=== PATIENT | female | born 1985 | race Caucasian/White ===

== ENCOUNTER 2020-02-17 16:51 | Outpatient (CLI) | payer OTHER | END 2020-02-17 16:52 | disposition home or self-care (01) | LOC: LAB 16:51 | PROVIDERS: ATTEND Physician Assistant Medical | DX: Z34.90 Encounter for supervision of normal pregnancy, unspecified, unspecified trimester (principal) | CPT/HCPCS: 36415; 84702 ==

== ENCOUNTER 2020-03-09 08:00 | Outpatient (CLI) | payer OTHER | END 2020-03-09 23:59 | disposition home or self-care (01) | LOC: LAB.WCP 08:00 | PROVIDERS: ATTEND Physician Assistant Medical | DX: Z34.90 Encounter for supervision of normal pregnancy, unspecified, unspecified trimester (principal) | CPT/HCPCS: 36415; 84702 ==

== ENCOUNTER 2020-03-10 10:00 | Outpatient (CLI) | payer OTHER ==
[2020-03-10 13:16] LABS: MUDS CUTOFF CONCENTRATIONS CUTOFF CONC BELOW:
[2020-03-10 13:37] LABS: BILIRUBIN,URINE NEGATIVE (NEGATIVE); GLUCOSE, URINE (UA) NEGATIVE (NEGATIVE); KETONES,URINE (UA) NEGATIVE (NEGATIVE); LEUKOCYTE ESTERASE, URINE NEGATIVE (NEGATIVE); NITRITE,URINE NEGATIVE (NEGATIVE); OCCULT BLOOD,URINE NEGATIVE (NEGATIVE); PROTEIN,URINE NEGATIVE (NEGATIVE); UROBILINOGEN,URINE 0.2 (NORMAL) E.U./dL (NORMAL)
[2020-03-10 13:39] LABS: CLARITY,URINE CLEAR (CLEAR)
[2020-03-10 13:47] LABS: AMPHETAMINE SCREEN,URINE NEGATIVE (NEGATIVE); BENZODIAZEPINES SCREEN, URINE NEGATIVE (NEGATIVE); COCAINE SCREEN URINE NEGATIVE (NEGATIVE); METHADONE SCREEN, URINE NEGATIVE (NEGATIVE); METHAMPHETAMINES SCREEN, URINE NEGATIVE (NEGATIVE); OPIATE SCREEN, URINE NEGATIVE (NEGATIVE); OXYCODONE SCREEN, URINE NEGATIVE (NEGATIVE); PROPOXYPHENE SCREEN, URINE NEGATIVE (NEGATIVE); TRICYCLIC ANTIDEPRESSANT,URINE NEGATIVE (NEGATIVE)
[2020-03-10 14:01] LABS: BACTERIA,URINE Rare /HPF (None Seen); RBC,URINE 0-5 /HPF (0-5); SQUAMOUS EPITHELIAL CELL,UR RARE Squamous (<= Few)
[2020-03-10 20:52] LABS: TRICHOMONAS VAGINALIS DNA NEGATIVE (NEGATIVE)
== END 2020-03-10 23:59 | disposition home or self-care (01) ==
LOC: LAB.R 10:00
PROVIDERS: ATTEND Advanced Practice Midwife
DX: Z36.89 Encounter for other specified antenatal screening (principal)
CPT/HCPCS: 80306; 81001; 87086; 87491; 87591; 87661

== ENCOUNTER 2020-03-16 08:46 | Outpatient (CLI) | payer OTHER ==
--- NOTE | 2020-03-16 17:44 | Ultrasound Report ---
Reason: POSITIVE TEST Procedure Date: 03/16/2020 Accession Number: [id number] / [id number] Procedure: US - OB First Trimester CPT Code: Final Report FULL RESULT: PROCEDURE: OB First Trimester INDICATIONS: POSITIVE TEST OUTSIDE/PRIOR DATING DATA: Last menstrual period (LMP): 12/14/2019. LMP-based estimated date of delivery (ILEANA): 09/19/2020. First dating scan (date and location): 03/16/2020. Estimated date of delivery (ILEANA) from first dating scan: 09/18/2020. TECHNIQUE: Real-time scanning was performed of the fetus and maternal pelvic organs, with image documentation. COMPARISON: None. FINDINGS: Embryo: There is a single intrauterine demonstrated. The crown-rump length measures up to 7.3 cm corresponding to a calculated gestational age of 13 weeks 3 days. There is heart motion with a rate of 144 bpm. The placenta is anterior in position. Measurement variability in dating: +/- 4 weeks by LMP, +/- 7 days by mean sac diameter (use before 6 weeks gestation if crown-rump length not able to be measured), +/- 5 days by crown-rump length (6-12 weeks gestation). Maternal organs: Ovaries are within normal size limits, measuring 2.0 x 3.3 x 2.9 cm on the right and 2.5 x 3.7 x 1.9 cm on the left. No adnexal masses. The cervix is closed and measures approximately 4.3 cm in length. IMPRESSION: 1. Single living intrauterine with cartilage gestational age of 13 weeks 3 days corresponding to an estimated delivery date of 09/18/2020. Findings are concordant with patient's dates by LMP. Reviewed by: Bryan Jo MD on 03/16/2020 1:06 PM PDT Approved by: Bryan Jo MD on 03/16/2020 1:06 PM PDT Station ID: [id number]
== END 2020-03-16 08:47 | disposition home or self-care (01) ==
LOC: DI 08:46
PROVIDERS: ATTEND Obstetrics & Gynecology
DX: Z34.91 Encounter for supervision of normal pregnancy, unspecified, first trimester (principal)
CPT/HCPCS: 76801

== ENCOUNTER 2020-04-27 14:33 | Outpatient (CLI) | payer OTHER ==
--- NOTE | 2020-04-27 17:47 | Ultrasound Report ---
PROCEDURE: OB Detailed Eval INDICATIONS: SCREENING OUTSIDE/PRIOR DATING DATA: Last menstrual period (LMP): 12/14/2019. LMP-based estimated date of delivery (ILEANA): 09/19/2020. First dating scan (date and location): 03/16/2020. Estimated date of delivery (ILEANA) from first dating scan: 09/18/2020. TECHNIQUE: Real-time scanning was performed of the fetus, with image documentation and biometric measurements. Endovaginal scanning: Not performed COMPARISON: 03/16/2020 FINDINGS: General: A single living intrauterine gestation is present. Presentation: Breech Placenta: Placental position is anterior, without previa. Amniotic fluid index: 14.6 cm, normal for gestational age. heart rate: 149 beats per minute. Maternal cervical canal: 4 cm long; normal length is 2.5 cm or more. biometrics: Biparietal diameter: 4.4 cm, 19 weeks, 2 days Head circumference: 16.5 cm, 19 weeks, 1 day Abdominal circumference: 13.4 cm, 18 weeks, 6 days Femur length: 2.7 cm, 18 weeks, 2 days Estimated gestational age from initial scan: 19 weeks, 3 days Composite gestational age from present scan: 18 weeks 6 days Estimated weight and percentile: 251 g, 18 weeks, 4 days, 11th percentile Measurement variability in biometric dating: +/- 10 days from 12-20 weeks gestation, +/- 2 weeks from 20-30 weeks gestation, +/- 3 weeks at 30 weeks gestation or later. Anatomic survey: Neuro: Ventricles are normal at less than 10 mm. Cisterna magna is normal at 3-11 mm. Cerebellum i s normal in size and morphology. Nuchal skin fold: Normal at less than 6 mm between 14 and 20 weeks gestational age. Face: Nose and lips, facial profile are normal. Spine: No evidence for spina bifida. Heart: 4-chambered heart is present, with normal ventricular outflow tracts. Diaphragm: Diaphragm is intact. Stomach: Left-sided stomach is present. Kidneys: No hydronephrosis. Normal is less than 5 mm in 2nd trimester, less than 7 mm in 3rd trimester. Cord: 3 vessel cord has orthotopic insertion. Bladder: Normal in size. Extremities: All 4 extremities are visualized. IMPRESSION: 1. Single living intrauterine with a composite gestational age of 18 weeks, 6 days, 4 days behind the initially assigned gestational age. 2. Symmetric growth and normal anatomy. Reviewed by: Ellyn River MD on 04/27/2020 5:45 PM PDT Approved by: Ellyn River MD on 04/27/2020 5:45 PM PDT Station ID: [id number]
== END 2020-04-27 14:34 | disposition home or self-care (01) ==
LOC: DI 14:33
PROVIDERS: ATTEND Advanced Practice Midwife
DX: Z36.89 Encounter for other specified antenatal screening (principal)
CPT/HCPCS: 76811

== ENCOUNTER 2020-05-03 09:45 | Outpatient (CLI) | payer OTHER ==
[2020-05-03 10:14] LABS: BASOPHILS % (AUTO) 0.3 %; EOSINOPHILS # (AUTO) 0.2 10^3/uL (0.0-0.7); EOSINOPHILS % (AUTO) 1.8 %; HGB - HEMOGLOBIN 12.4 g/dL (12.0-16.0); LYMPHOCYTES % (AUTO) 10.4 %; MEAN CORPUSCULAR HEMOGLOBIN 29.7 pg (27.0-31.0); MEAN CORPUSCULAR HGB CONC 33.5 g/dL (32.0-36.0); MEAN CORPUSCULAR VOLUME 88.5 fL (81.0-99.0); MEAN PLATELET VOLUME 9.4 fL (7.9-10.8); MONOCYTES # (AUTO) 0.7 10^3/uL (0.0-1.0); MONOCYTES % (AUTO) 7.2 %; NEUTROPHILS # (AUTO) 7.7 10^3/uL (1.5-6.6); NEUTROPHILS % (AUTO) 79.8 %; PLT - PLATELET COUNT 236 10^3/uL (130-450); RED BLOOD COUNT 4.18 10^6/uL (4.20-5.40); RED CELL DISTRIBUTION WIDTH 12.3 % (12.0-15.0); WHITE BLOOD COUNT 9.6 x10^3/uL (4.8-10.8)
[2020-05-04 09:49] LABS: HIV AG/AB 4TH GEN NON-REACTIVE (NON-REACTIVE)
[2020-05-04 12:19] LABS: HEPATITIS C ANTIBODY NON-REACTIVE (NON-REACTIVE)
[2020-05-04 12:20] LABS: HEPATITIS B SURFACE ANTIGEN NON-REACTIVE (NON-REACTIVE)
== END 2020-05-03 09:46 | disposition home or self-care (01) ==
LOC: LAB 09:45
PROVIDERS: ATTEND Advanced Practice Midwife
DX: Z36.89 Encounter for other specified antenatal screening (principal)
CPT/HCPCS: 36415; 81599; 85025; 86592; 86762; 86803; 86850; 86900; 86901; 87340; 87389

== ENCOUNTER 2020-06-19 08:32 | Outpatient (CLI) | payer OTHER ==
--- NOTE | 2020-06-19 11:58 | Ultrasound Report ---
PROCEDURE: OB F/U or Repeat INDICATIONS: POOR GROWTH OUTSIDE/PRIOR DATING DATA: Last menstrual period (LMP): 12/14/2019. LMP-based estimated date of delivery (ILEANA): 09/19/2020. First dating scan (date and location): 03/16/2020. Estimated date of delivery (ILEANA) from first dating scan: 09/18/2020. TECHNIQUE: Real-time scanning was performed of the fetus, with image documentation and biometric measurements. COMPARISON: 04/27/2020, 03/16/2020 FINDINGS: General: A single live intrauterine gestation is present. Presentation: Cephalic Placenta: Placental position is anterior, without previa. Amniotic fluid index: 18.6 cm, 80th percentile for gestational age. heart rate: 138 beats per minute. Maternal cervical canal: 4 cm long; normal length is 2.5 cm or more. biometrics: Biparietal diameter: 6.9 cm he was 27 weeks 5 days Head circumference: 25.2 cm equals 27 weeks 2 days Abdominal circumference: 23.9 cm equals 28 weeks 0 days Femur length: 4.9 cm equals 26 weeks 2 days Estimated gestational age from initial scan: 27 weeks 0 days Composite gestational age from present scan: 27 weeks 1 day Estimated weight and percentile: 1057 g, 51st percentile Measurement variability in biometric dating: +/- 10 days from 12-20 weeks gestation, +/- 2 weeks from 20-30 weeks gestation, +/- 3 weeks at 30 weeks gestation or more. Other: The previously seen appearing calcifications within the liver are no longer seen. IMPRESSION: Normal interval growth compared to the prior ultrasound examination. Reviewed by: Narinder Garcia MD on 06/19/2020 10:57 AM PATRICK Approved by: Narinder Garcia MD on 06/19/2020 10:57 AM PATRICK Station ID: [id number]
== END 2020-06-19 08:33 | disposition home or self-care (01) ==
LOC: DI 08:32
PROVIDERS: ATTEND Midwife
DX: O36.5930 Maternal care for other known or suspected poor fetal growth, third trimester, not applicable or unspecified (principal); Z3A.27 27 weeks gestation of pregnancy
CPT/HCPCS: 76816

== ENCOUNTER 2020-08-09 09:30 | Outpatient (CLI) | payer MEDICAID ==
[2020-08-09 13:32] LABS: BASOPHILS % (AUTO) 0.4 %; EOSINOPHILS # (AUTO) 0.1 10^3/uL (0.0-0.7); HGB - HEMOGLOBIN 12.6 g/dL (12.0-16.0); LYMPHOCYTES % (AUTO) 12.4 %; MEAN CORPUSCULAR HEMOGLOBIN 29.6 pg (27.0-31.0); MEAN CORPUSCULAR HGB CONC 34.1 g/dL (32.0-36.0); MEAN CORPUSCULAR VOLUME 86.6 fL (81.0-99.0); MEAN PLATELET VOLUME 10.9 fL (7.9-10.8); MONOCYTES # (AUTO) 0.6 10^3/uL (0.0-1.0); MONOCYTES % (AUTO) 7.7 %; NEUTROPHILS # (AUTO) 6.5 10^3/uL (1.5-6.6); NEUTROPHILS % (AUTO) 77.9 %; PLT - PLATELET COUNT 233 10^3/uL (130-450); RED BLOOD COUNT 4.26 10^6/uL (4.20-5.40); RED CELL DISTRIBUTION WIDTH 12.1 % (12.0-15.0); WHITE BLOOD COUNT 8.3 x10^3/uL (4.8-10.8)
[2020-08-09 13:47] LABS: CREATININE,URINE 67.9 mg/dL; PROTEIN/CREATININE RATIO,URINE 0.2 (<=0.2)
[2020-08-09 14:03] LABS: ALBUMIN 2.7 g/dL (3.2-5.5); ALBUMIN/GLOBULIN RATIO 1.1 (1.0-2.2); BILIRUBIN,TOTAL 0.2 mg/dL (0.2-1.0); CALCIUM 8.5 mg/dL (8.5-10.3); TOTAL PROTEIN 5.2 g/dL (6.7-8.2); URIC ACID 3.6 mg/dL (2.6-7.2)
[2020-08-09 18:09] LABS: CREATININE 0.5 mg/dL (0.4-1.0)
== END 2020-08-09 23:59 | disposition home or self-care (01) ==
LOC: LAB.WCP 09:30
PROVIDERS: ATTEND Midwife
DX: Z34.03 Encounter for supervision of normal first pregnancy, third trimester (principal)
CPT/HCPCS: 80053; 82570; 84156; 84550; 85025

== ENCOUNTER 2020-08-31 11:36 | Outpatient (CLI) | payer MEDICAID ==
[2020-08-31 12:10] LABS: BASOPHILS % (AUTO) 0.3 %; EOSINOPHILS # (AUTO) 0.1 10^3/uL (0.0-0.7); EOSINOPHILS % (AUTO) 0.9 %; HGB - HEMOGLOBIN 13.3 g/dL (12.0-16.0); LYMPHOCYTES # (AUTO) 0.9 10^3/uL (1.5-3.5); LYMPHOCYTES % (AUTO) 10.7 %; MEAN CORPUSCULAR HEMOGLOBIN 29.4 pg (27.0-31.0); MEAN CORPUSCULAR HGB CONC 33.9 g/dL (32.0-36.0); MEAN CORPUSCULAR VOLUME 86.7 fL (81.0-99.0); MEAN PLATELET VOLUME 10.1 fL (7.9-10.8); MONOCYTES # (AUTO) 0.7 10^3/uL (0.0-1.0); MONOCYTES % (AUTO) 7.8 %; NEUTROPHILS # (AUTO) 6.9 10^3/uL (1.5-6.6); NEUTROPHILS % (AUTO) 79.4 %; PLT - PLATELET COUNT 243 10^3/uL (130-450); RED BLOOD COUNT 4.52 10^6/uL (4.20-5.40); RED CELL DISTRIBUTION WIDTH 12.8 % (12.0-15.0); WHITE BLOOD COUNT 8.7 x10^3/uL (4.8-10.8)
[2020-08-31 12:24] LABS: ALBUMIN/GLOBULIN RATIO 1.1 (1.0-2.2); BILIRUBIN,TOTAL 0.6 mg/dL (0.2-1.0); CALCIUM 9.7 mg/dL (8.5-10.3); CREATININE 0.5 mg/dL (0.4-1.0); TOTAL PROTEIN 5.7 g/dL (6.7-8.2)
[2020-08-31 12:25] LABS: CREATININE,URINE 28.8 mg/dL; PROTEIN/CREATININE RATIO,URINE 0.2 (<=0.2)
--- NOTE | 2020-08-31 16:15 | Ultrasound Report ---
PROCEDURE: OB F/U or Repeat INDICATIONS: HTN, ILEANA 09/19/20 OUTSIDE/PRIOR DATING DATA: Last menstrual period (LMP): 12/14/2019. LMP-based estimated date of delivery (ILEANA): 09/19/2020. First dating scan (date and location): 03/16/2020. Estimated date of delivery (ILEANA) from first dating scan: 09/18/2020. TECHNIQUE: Real-time scanning was performed of the fetus, with image documentation and biometric measurements. COMPARISON: OB ultrasound 06/19/2020, 04/27/2020 FINDINGS: General: A single living intrauterine gestation is present. Presentation: Vertex Placenta: Placental position is anterior, without previa. Amniotic fluid index: 16.2 cm, 67th percentile for gestational age. Largest pocket 7.4 cm heart rate: 163 beats per minute. Maternal cervical canal: Not assessed biometrics: Biparietal diameter: 9.23 cm 37 weeks 3 days Head circumference: 33.6 cm 38 weeks 3 days Abdominal circumference: 35.6 cm 39 weeks 3 days Femur length: 7.2 cm 36 weeks 5 days Estimated gestational age from initial scan: 37 weeks 3 days Composite gestational age from present scan: 38 weeks 0 days Estimated weight and percentile: 3158 g 84th percentile Measurement variability in biometric dating: +/- 10 days from 12-20 weeks gestation, +/- 2 weeks from 20-30 weeks gestation, +/- 3 weeks at 30 weeks gestation or more. Other: Not applicable. IMPRESSION: 1. Single live with ultrasound gestational age today of 30 weeks 0 days compared to 37 week s 3 days from initial ultrasound. Ultrasound ILEANA is unchanged at 09/18/2020. Reviewed by: Sherrie Celeste MD on 08/31/2020 4:14 PM PST Approved by: Sherrie Celeste MD on 08/31/2020 4:14 PM PST Station ID: [id number]
[2020-08-31 18:04] VITALS: BP 134/94
--- NOTE | 2020-09-03 18:10 | PROVIDER PROGRESS NOTE ---
- HPI Chief Complaint: Other Current : Current EDU 09/19/20 Gestation 37 Weeks and 2 Days 1 Para 0 Vital Signs Temperature 98.1 F 08/31/20 11:49 Heart Rate 111 H 08/31/20 11:49 Respiratory Rate 16 08/31/20 11:49 Blood Pressure 133/95 H 08/31/20 11:49 O2 Saturation 100 08/31/20 11:49 Temperature 98.1 F 08/31/20 11:49 Heart Rate 93 08/31/20 13:00 Respiratory Rate 16 08/31/20 11:49 Blood Pressure 134/94 H 08/31/20 13:00 O2 Saturation 100 08/31/20 11:49 - Exam Patient is a 35 yo at 37+ 2 wga who presented from clinic for PIH evaluation. Patient had been planning a home with [facility]. She developed consistently elevated BPs. Presented as a HADLEY given new onsent GHTN. No PIH symptoms. Seen in clinic and had mild range pressures. Sent to triage for NST/HUBER with growth us and PIH labs Labs were wnl HUBER 16 and EFW 87%ile EFM 140 mod diane 15x15 accels no decels TOCO: Intermittent ctx , mild A/P: Cat I tracing Mild range pressures Reassuring PIH labs EFW wnl Confirmed vertex Return for IOL on 09/03/2020 Consents obtain in clinic - Procedures NST Procedure: NST Procedure Start Date 08/31/20 Start Time 11:45 Patient States Movement Yes
== END 2020-08-31 15:32 | disposition home or self-care (01) ==
LOC: WFO 11:36 → FBP 11:38 → WFO 15:32
PROVIDERS: ATTEND Obstetrics & Gynecology
DX: O13.3 Gestational [pregnancy-induced] hypertension without significant proteinuria, third trimester (principal); Z3A.37 37 weeks gestation of pregnancy
CPT/HCPCS: 59025; 80053; 82570; 84156; 84550; 85025

== ENCOUNTER 2020-09-03 07:34 | Inpatient (IN) | payer MEDICAID ==
[2020-09-03] MEDS ORDERED: TRANEXAMIC ACID 1,000 MG in SODIUM CHLORIDE 0.9% 100ML 100 ML IV PRN (07:52)
[2020-09-03] MEDS ORDERED: miSOPROStoL 200 MCG TABLET PR PRN (07:52)
[2020-09-03] MEDS ORDERED: CARBOPROST TROMETHAMINE 250 MCG/ML AMP IM PRN ×2 (07:52)
[2020-09-03] MEDS ORDERED: OXYTOCIN 10 UNIT/ML VIAL IM PRN (07:52)
[2020-09-03] MEDS ORDERED: SODIUM CHLORIDE FLUSH 0.9% 10 ML SYRINGE IVP PRN (07:52)
[2020-09-03] MEDS ORDERED: miSOPROStoL 200 MCG TABLET BC PRN (07:52)
[2020-09-03] MEDS ORDERED: LIDOCAINE-MPF 1% 30 ML VIAL ID PRN (07:52)
[2020-09-03] MEDS ORDERED: ACETAMINOPHEN 325 MG TABLET PO PRN (07:52)
[2020-09-03] MEDS ORDERED: miSOPROStoL 200 MCG TABLET BC ONE (07:52)
[2020-09-03 08:27] LABS: BASOPHILS % (AUTO) 0.3 %; EOSINOPHILS # (AUTO) 0.1 10^3/uL (0.0-0.7); EOSINOPHILS % (AUTO) 1.3 %; HGB - HEMOGLOBIN 13.1 g/dL (12.0-16.0); LYMPHOCYTES # (AUTO) 1.3 10^3/uL (1.5-3.5); LYMPHOCYTES % (AUTO) 13.5 %; MEAN CORPUSCULAR HEMOGLOBIN 29.8 pg (27.0-31.0); MEAN CORPUSCULAR HGB CONC 33.9 g/dL (32.0-36.0); MEAN PLATELET VOLUME 10.3 fL (7.9-10.8); MONOCYTES # (AUTO) 0.8 10^3/uL (0.0-1.0); MONOCYTES % (AUTO) 8.7 %; NEUTROPHILS # (AUTO) 7.2 10^3/uL (1.5-6.6); NEUTROPHILS % (AUTO) 75.4 %; PLT - PLATELET COUNT 232 10^3/uL (130-450); RED CELL DISTRIBUTION WIDTH 12.9 % (12.0-15.0); WHITE BLOOD COUNT 9.5 x10^3/uL (4.8-10.8)
[2020-09-03 08:36] LABS: ALBUMIN 2.9 g/dL (3.2-5.5); ALBUMIN/GLOBULIN RATIO 1.1 (1.0-2.2); BILIRUBIN,TOTAL 0.6 mg/dL (0.2-1.0); CALCIUM 8.6 mg/dL (8.5-10.3); CREATININE 0.6 mg/dL (0.4-1.0); TOTAL PROTEIN 5.5 g/dL (6.7-8.2)
[2020-09-03] MEDS: miSOPROStoL 100 MCG TABLET BC SCH ×4 (08:55→20:01)
[2020-09-03 10:59] LABS: CREATININE,URINE 108.8 mg/dL; PROTEIN/CREATININE RATIO,URINE 0.2 (<=0.2)
--- NOTE | 2020-09-03 17:45 | PROVIDER PROGRESS NOTE ---
Subjective - Prog Note Date Prog Note Date: 09/03/20 Prog Note Time: 05:00 - Subjective Subjective: Patient has had 2 doses of misoprostol and is parul regularly . Beginning to feel more painful contractions BPs wnl No PIH symptoms SBE closed/60/-2/ant/med Cat I tracing CTX Q2 min If continues to contract at this frequency when due for miso, will hold for expectantn management. OK to give at a lter hour if contractions peter out. Objective - Vital Signs/Intake & Output Vital Signs: Vital Signs x48h Temp Pulse Resp BP Pulse Ox 09/03/20 17:00 97.7 F 100 18 144/83 H 100 09/03/20 14:52 98.4 F 89 16 106/62 09/03/20 13:15 91 18 128/74 99 09/03/20 11:38 97.8 F 83 16 134/82 H 100 09/03/20 10:26 98.1 F 98 20 127/90 H 100 Intake & Output: Intake & Output 08/31/20 09/01/20 09/02/20 09/03/20 23:59 23:59 23:59 23:59 Output Total 480 Balance -480 - Lab Results Fish Bones: 09/03/20 08:15 09/03/20 08:15 Other Labs: Lab Results x24hrs 09/03/20 09/03/20 09/03/20 Range/Units 10:25 08:15 08:15 WBC (4.8-10.8) x10^3/uL RBC (4.20-5.40) 10^6/uL Hgb (12.0-16.0) g/dL Hct (37.0-47.0) % MCV (81.0-99.0) fL MCH (27.0-31.0) pg MCHC (32.0-36.0) g/dL RDW (12.0-15.0) % Plt Count (130-450) 10^3/uL MPV (7.9-10.8) fL Neut # (Auto) (1.5-6.6) 10^3/uL Lymph # (Auto) (1.5-3.5) 10^3/uL Freeborn # (Auto) (0.0-1.0) 10^3/uL Eos # (Auto) (0.0-0.7) 10^3/uL Baso # (Auto) (0.0-0.1) 10^3/uL Absolute Nucleated RBC x10^3/uL Nucleated RBC % /100WBC Sodium 135 (135-145) mmol/L Potassium 3.6 (3.5-5.0) mmol/L Chloride 103 (101-111) mmol/L Carbon Dioxide 20 L (21-32) mmol/L Anion Gap 12.0 (6-13) BUN 7 (6-20) mg/dL Creatinine 0.6 (0.4-1.0) mg/dL Estimated GFR (MDRD) 114 (>89) Glucose 126 H (70-100) mg/dL Calcium 8.6 (8.5-10.3) mg/dL Total Bilirubin 0.6 (0.2-1.0) mg/dL AST 17 (10-42) IU/L ALT 14 (10-60) IU/L Alkaline Phosphatase 118 (42-121) IU/L Total Protein 5.5 L (6.7-8.2) g/dL Albumin 2.9 L (3.2-5.5) g/dL Globulin 2.6 (2.1-4.2) g/dL Albumin/Globulin Ratio 1.1 (1.0-2.2) Urine Creatinine 108.8 mg/dL Ur Total Protein Timed 23 mg/dL Protein/Creatinin Ratio 0.2 (<=0.2) Blood Type A POSITIVE Antibody Screen NEGATIVE 09/03/20 Range/Units 08:15 WBC 9.5 (4.8-10.8) x10^3/uL RBC 4.40 (4.20-5.40) 10^6/uL Hgb 13.1 (12.0-16.0) g/dL Hct 38.7 (37.0-47.0) % MCV 88.0 (81.0-99.0) fL MCH 29.8 (27.0-31.0) pg MCHC 33.9 (32.0-36.0) g/dL RDW 12.9 (12.0-15.0) % Plt Count 232 (130-450) 10^3/uL MPV 10.3 (7.9-10.8) fL Neut # (Auto) 7.2 H (1.5-6.6) 10^3/uL Lymph # (Auto) 1.3 L (1.5-3.5) 10^3/uL Freeborn # (Auto) 0.8 (0.0-1.0) 10^3/uL Eos # (Auto) 0.1 (0.0-0.7) 10^3/uL Baso # (Auto) 0.0 (0.0-0.1) 10^3/uL Absolute Nucleated RBC 0.00 x10^3/uL Nucleated RBC % 0.0 /100WBC Sodium (135-145) mmol/L Potassium (3.5-5.0) mmol/L Chloride (101-111) mmol/L Carbon Dioxide (21-32) mmol/L Anion Gap (6-13) BUN (6-20) mg/dL Creatinine (0.4-1.0) mg/dL Estimated GFR (MDRD) (>89) Glucose (70-100) mg/dL Calcium (8.5-10.3) mg/dL Total Bilirubin (0.2-1.0) mg/dL AST (10-42) IU/L ALT (10-60) IU/L Alkaline Phosphatase (42-121) IU/L Total Protein (6.7-8.2) g/dL Albumin (3.2-5.5) g/dL Globulin (2.1-4.2) g/dL Albumin/Globulin Ratio (1.0-2.2) Urine Creatinine mg/dL Ur Total Protein Timed mg/dL Protein/Creatinin Ratio (<=0.2) Blood Type Antibody Screen
--- NOTE | 2020-09-03 17:55 | HISTORY & PHYSICAL EXAMINATION ---
Admit History - Risk/History: positive: induced HTN Smoking Status: Never smoker - Mother's Labs Mother's Blood Type: positive: A Mother's RH: positive: Positive GBS: positive: Group B Step Negative Rubella Status: positive: Immune - Other Maternal History Other Maternal History: Patient is a 35 yo at 37+5 wga here for induction of labor. Patient had been followed by [facility] and planned a home . She started to develop consistently elevated blood pressures and her transportation engineering technician recommended transfer with likely induction of labor for GHTN. Patient presented to clinic on 08/31/2020 and elevated BP was noted. She presented her BP log which also showed an upward trend on BPs with increasing consistency. She was sent to triage for NST, PIH assessment, and growth us, all of which returned wnl. EFW 8%ile with normal HUBER and vertex presentation. We had reviewed R/B/A to [facility] at that time and written informed consent was obtained. We also reviewed her plan which she has brought with her here. Initial US: at 13.4wks c/wLMP for ILEANA of 09/19/2020 A pos/Rubella imm Gentic testing: education given, declines FAS: Anterior Placenta. HUBER wnl. EFW 11% with symmetrical growth. 3VC. Glucola 91 TDAP 07/31/2020 GBS neg HSV: denies self and partner Breast pump Rx MOD: . Spouse: Juan Alberto. Gender: SURPRISE. (ILEANA by late US, long cycle length, she believes ILEANA ) Read Veronica Lynn's Guide. pp contraception: PA: Pt reports 2019- wnl Meds/Allgy - Allergies Allergies/Adverse Reactions: Allergies Allergy/AdvReac Type Severity Reaction Status Date / Time No Known Drug Allergies Allergy Verified 09/03/20 10:20 Review of Systems - Other Findings Other Findings: As per HPI, otherwise remaining systems are negative Physical - Abdominal Exam Vital Signs: Temp Pulse Resp BP Pulse Ox 97.7 F 100 18 144/83 H 100 09/03/20 17:00 09/03/20 17:00 09/03/20 17:00 09/03/20 17:00 09/03/20 17:00 Contraction Frequency (min/apart): quiet - Monitoring Heart Rate Baseline: 140 mod diane 15x15 accels no decels Strip Review: positive: Category I - Presentation Presentation: positive: Vertex - Vaginal Exam Dilation (in cm): closed Effacement (%): long Station: positive: -3 Cervical Position: positive: Posterior Plan for Labor - Plan For Labor Plan for Labor: 35 yo at 37+5 with complicated by GHTN here for IOL IOL: Unfavorable cervix. -Will proceed with misoprostol for cervical ripening -Reviewed the possibility of monroe balloon placement -Pitocin when favorable -AROM as indicated GHTN: Mild range -Will need IV labetalol/hydralazine for systolics > 160 of DBP> 110 -Consider magnesium with onset of severe range pressures or symptoms -Expectant management at present FWB: Cat I tracing, well grown, vertex, GBS neg -Cat I tracing PAIN: Patient desires unmedicated delivery -Nitrous as desired -Fentanyl 50 mg IV Q1 H to max dose of 200 mcg and not to be given after 7 cm dilation In-patient care
[2020-09-03] MEDS ORDERED: hydrALAZINE INJ 20 MG/ML VIAL IVP PRN (18:00)
[2020-09-03] MEDS ORDERED: LABETALOL 20 MG/4 ML SYRINGE IVP PRN (18:05)
[2020-09-04] MEDS: miSOPROStoL 100 MCG TABLET BC SCH ×3 (00:05→08:31)
--- NOTE | 2020-09-04 08:46 | PROVIDER PROGRESS NOTE ---
Subjective - Prog Note Date Prog Note Date: 09/04/20 Prog Note Time: 08:44 - Subjective Subjective: Patient is beginning to rate pain 2/10. Has had 5 doses of misoprostol. Mary Kate Q2 min Objective - Vital Signs/Intake & Output Reviewed Vital Signs: Yes Vital Signs: Vital Signs x48h Temp Pulse Resp BP Pulse Ox 09/04/20 06:05 92 16 118/70 100 09/04/20 04:07 97.9 F 78 16 110/74 100 Intake & Output: Intake & Output 09/01/20 09/02/20 09/03/20 09/04/20 23:59 23:59 23:59 23:59 Output Total 480 Balance -480 - Objective General Appearance: positive: No acute distress Respiratory: positive: No respiratory distress Cardiovascular: positive: Other (RR) Abdomen: positive: Other (gravid, S&NT/ND) Skin: positive: Color nml Extremities: positive: Non-tender Neurologic/Psychiatric: positive: Oriented x3 Comments/Other: EFM 145 mod diane 15x15 accels no decels TOCO: q2 min, mild SVE 1/60/-2/anterior/med - Lab Results Fish Bones: 09/03/20 08:15 09/03/20 08:15 Other Labs: Lab Results x24hrs 09/03/20 09/03/20 Range/Units 10:25 08:15 Urine Creatinine 108.8 mg/dL Ur Total Protein Timed 23 mg/dL Protein/Creatinin Ratio 0.2 (<=0.2) Blood Type A POSITIVE Antibody Screen NEGATIVE Assessment/Plan - Problem List (1) Encounter for induction of labor Impression: IOL: Has had 5 doses of miso Making some cervical change Reviewed possibility of monroe balloon placement vs continuing with miso Also reviewed adding monroe balloon after this dose of miso with addition of low dose pitocin -Will cont with miso and reassess need for Monroe balloon in 5 hours FWB: Cat I tracing GHTN: Normal vs mild range pressures at present No PIH symptoms Cont inpatient care
[2020-09-04] MEDS: SODIUM CHLORIDE FLUSH 0.9% 10 ML SYRINGE IVP SCH (11:13)
--- NOTE | 2020-09-04 14:25 | PROVIDER PROGRESS NOTE ---
Subjective - Prog Note Date Prog Note Date: 09/04/20 Prog Note Time: 14:22 - Subjective Subjective: Patient has had 6 doses of miso. Mary Kate Q2-3 but not really feeling them. No VB or LOF. BPs in normal range. No PIH symptoms Objective - Vital Signs/Intake & Output Reviewed Vital Signs: Yes Intake & Output: Intake & Output 09/01/20 09/02/20 09/03/20 09/04/20 23:59 23:59 23:59 23:59 Intake Total 1000 Output Total 480 Balance -480 1000 - Objective General Appearance: positive: No acute distress Respiratory: positive: No respiratory distress Cardiovascular: positive: Other (RR) Skin: positive: Color nml Neurologic/Psychiatric: positive: Oriented x3 Comments/Other: SVE 1+/70/-2/mid/med Diaz balloon placed with 60 cc NS in each balloon. - Lab Results Fish Bones: 09/03/20 08:15 09/03/20 08:15 - Other Results/Comments Other Results/Comments: EFM 145 mod diane 15x15 accels no decels ( few mild variables after FB palcement, now resolved) TOCO: Q4 Min Assessment/Plan - Problem List (1) Encounter for induction of labor Impression: s/p miso x6 Diaz balloon placed with 60 cc NS in each balloon. Placed on tension Cat I tracing OK to start low dose pitocin if patient desires moving forward. Otherwise, cont with Diaz balloon until it falls out.
[2020-09-04] MEDS: LACTATED RINGERS 1,000 ML IV SCH (17:38)
[2020-09-04] MEDS: OXYTOCIN/SODIUM CHLORIDE 500 ML IV SCH (17:40)
--- NOTE | 2020-09-04 20:32 | PROVIDER PROGRESS NOTE ---
Subjective - Prog Note Date Prog Note Date: 09/04/20 Prog Note Time: 20:30 - Subjective Subjective: Diaz balloon has fallen out. Pitocin is at 2 mu/min. Contractions are every 2- 3 and are mildly uncomfortable. Patient would like to sleep but declines sleep aids at present. No VB or LOF. EFM 145 mod diane 15x15 accels no decels TOCO: Q2-3 SVE 4-5/60/-2/mid A/P: 35 yo at 37+4 wga here for IOL for GHTN IOL: s/p miso x6 S/p Diaz balloon Pitocin at 2 mU/min Making adequate cervical change and parul regularly Cont with pitocin induction GHTN: BPs in appropriate range FWB: Cat I tracing Anticipate Objective - Vital Signs/Intake & Output Vital Signs: Vital Signs x48h Pulse Resp BP Pulse Ox 09/04/20 19:00 84 16 139/80 H 100 Intake & Output: Intake & Output 09/01/20 09/02/20 09/03/20 09/04/20 23:59 23:59 23:59 23:59 Intake Total 480 1001.783 Balance 480 1001.783 - Lab Results Fish Bones: 09/03/20 08:15 09/03/20 08:15
[2020-09-05] MEDS: LACTATED RINGERS 1,000 ML IV SCH (03:40)
--- NOTE | 2020-09-05 11:25 | PROVIDER PROGRESS NOTE ---
Subjective - Prog Note Date Prog Note Date: 09/05/20 Prog Note Time: 10:05 - Subjective Subjective: Patient is having only minimal discomfort. Up and ambulating. no LOF or VB Objective - Vital Signs/Intake & Output Vital Signs: 92 130/73 (see Centricity) Intake & Output: Intake & Output 09/02/20 09/03/20 09/04/20 09/05/20 23:59 23:59 23:59 23:59 Intake Total 480 2893.376 1566.017 Balance 480 5316.255 4080.017 - Objective General Appearance: positive: No acute distress Respiratory: positive: No respiratory distress Cardiovascular: positive: Other (RR) Abdomen: positive: Other (garvid, S&NT/ND) Skin: positive: Color nml Extremities: positive: Non-tender, No pedal edema Neurologic/Psychiatric: positive: Oriented x3 Comments/Other: SVE 5/60/-2/mid/med - Lab Results Fish Bones: 09/03/20 08:15 09/03/20 08:15 - Other Results/Comments Other Results/Comments: EFM 145 mod diane 15x15 accels no decels TOCO: Q2-3 min, mild Assessment/Plan - Problem List (1) Encounter for induction of labor Impression: IOL: S/p miso x6 S/p Diaz Balloon Pitocin at 15 mu/min No marked change in SVE Suspect cervical dilation reflect Diaz balloon activity Cont with pitocin If we reach max dose of 20 mu/min, maintain for 2 hours and then rest if no significant cervical change has occurred Will restart pitocin after rest period at beginning of algorithm Will refrain from AROM at present given early in induction process GHTN: Blood pressures are in mild/normal range -No inidcation for medication/intervention for BPs FWB: Cat I tracing Cont with IOL Anticipate
--- NOTE | 2020-09-05 21:00 | PROVIDER PROGRESS NOTE ---
Subjective - Prog Note Date Prog Note Date: 09/05/20 Prog Note Time: 20:58 - Subjective Subjective: Late entry incorporating earlier events Patient is currently resting off pitocin until 10 pm. Had been uptitrated on pitocin slowly over the course of the day. had been at 20 mU/min for 1 hour + with no change in SVE Recommend stopping pitocin, continuing EFM for an additional 30 minutes and then giving patient 5 hr rest from pitocin and EFM. Patient feels mild contractions without pitocin but has not had strong contractions throughout the course of the day No LOF or VB. Objective - Vital Signs/Intake & Output Reviewed Vital Signs: Yes Vital Signs: 84 18 132/79 See centricity . BPs remain in mild to normal range. Intake & Output: Intake & Output 09/02/20 09/03/20 09/04/20 09/05/20 23:59 23:59 23:59 23:59 Intake Total 480 8516.577 9231.917 Balance 480 9488.482 6842.917 - Objective General Appearance: positive: No acute distress Respiratory: positive: No respiratory distress Cardiovascular: positive: Other (RR) Abdomen: positive: Non-tender Skin: positive: Color nml Extremities: positive: Non-tender, No pedal edema Neurologic/Psychiatric: positive: Oriented x3 - Lab Results Fish Bones: 09/03/20 08:15 09/03/20 08:15 Other Labs: Lab Results x24hrs 09/03/20 Range/Units 09:45 Coronavirus (PCR) NEGATIVE - Other Results/Comments Other Results/Comments: EFM 135 mod diane 15x15 accels no decels TOCO: Q4-7 min SVE 5/60/-2 Assessment/Plan - Problem List (1) Encounter for induction of labor Impression: IOL: Reached max dose of pitocin with no cervical change attendant 1 hour Currently resting form pitocin with plan to restart at 10 pm FWB: Vertex, Cat I tracing, GBS neg -Restart EFM when pitocinis restarted GHTN: Normal to mild rage -No antihypertensives indicated at this time
[2020-09-05] MEDS: OXYTOCIN/SODIUM CHLORIDE 500 ML IV SCH (23:50)
[2020-09-06] MEDS: LACTATED RINGERS 1,000 ML IV SCH ×2 (02:21→13:20)
[2020-09-06] MEDS ORDERED: OXYTOCIN/SODIUM CHLORIDE 500 ML IV SCH (13:00)
--- NOTE | 2020-09-06 14:33 | PROVIDER PROGRESS NOTE ---
Subjective - Prog Note Date Prog Note Date: 09/06/20 Prog Note Time: 10:20 - Subjective Subjective: Patient is doing well. Mary Kate regularly but barely feeling them. Did not sleep well. Pitocin at 17 mu/min. No VB or LOF. Objective - Vital Signs/Intake & Output Reviewed Vital Signs: Yes Vital Signs: Vital Signs x48h Temp 09/06/20 14:08 98.1 F 151/98 Intake & Output: Intake & Output 09/03/20 09/04/20 09/05/20 09/06/20 23:59 23:59 23:59 23:59 Intake Total 480 4514.090 2264.817 1500.000 Output Total 225 890 Balance 480 4465.599 8133.817 610.000 - Objective General Appearance: positive: No acute distress Eyes Bilateral: positive: Normal inspection Respiratory: positive: No respiratory distress, Breath sounds nml Cardiovascular: positive: Regular rate & rhythm Abdomen: positive: Non-tender, Other (gravid, S&NT/ND) Back: positive: Nml inspection Skin: positive: Color nml Extremities: positive: Non-tender, Nml appearance, No pedal edema Neurologic/Psychiatric: positive: Oriented x3 Comments/Other: SVE 5.5/60/-2 EFM 145 mod diane 15x15 accels no decels TOCO: Q3-4 - Lab Results Fish Bones: 09/03/20 08:15 09/03/20 08:15 Other Labs: Lab Results x24hrs 09/03/20 Range/Units 09:45 Coronavirus (PCR) NEGATIVE Assessment/Plan - Problem List (1) Encounter for induction of labor Impression: IOL: s/p miso x6 S/p Diaz balloon Has reached amx dose pit yesterady and rested for 5 hours Currently at 17 mu/min with no real SVE Reviewed options for management after reaching 20 mU/min again this afternoon 1) Cont to 30 mU/min. I prefer to do this during daylight and not overnight 2) AROM 3) Pit to 30 mu/min max, AROM, IUPC 4) DC to home (not recommended given rise in BP) tracing consistently Cat I Patient not in any discomfort They would like to avoid IUPC until absolutely necessary Will reassess in 2-3 hours
--- NOTE | 2020-09-06 14:43 | PROVIDER PROGRESS NOTE ---
Subjective - Prog Note Date Prog Note Date: 09/06/20 Prog Note Time: 13:10 - Subjective Subjective: Patient remains without discomfort Contractions every 3-4 min No LOF or VB BP in mild to normal range Pitocin at 20 mU/min Objective - Vital Signs/Intake & Output Vital Signs: Vital Signs x48h Temp 09/06/20 14:08 98.1 F Intake & Output: Intake & Output 09/03/20 09/04/20 09/05/20 09/06/20 23:59 23:59 23:59 23:59 Intake Total 480 4254.806 3025.817 1500.000 Output Total 225 890 Balance 480 9979.750 9744.817 610.000 - Objective General Appearance: positive: No acute distress Neck: positive: Nml inspection Respiratory: positive: No respiratory distress Cardiovascular: positive: Other (RR) Skin: positive: Color nml Extremities: positive: No pedal edema Neurologic/Psychiatric: positive: Oriented x3 Comments/Other: SVE /-2 - Lab Results Fish Bones: 09/03/20 08:15 09/03/20 08:15 Other Labs: Lab Results x24hrs 09/03/20 Range/Units 09:45 Coronavirus (PCR) NEGATIVE Assessment/Plan - Problem List (1) Encounter for induction of labor Impression: Pitocin at 20 mU/min with no significant cervical change Reviewed options with patient and partner Wants to proceed to max dose of 30 mU/min Without significant change after one hour at 30 mU/min (if patient needs to continue to that dose), will dc pit and rest patient overnight to get adequate s leep. Will restart pitocin in am and AROM once contractions are regular. Plan reviewed with charge nurse, bedside RN, and pharmacy PLAN: Will increase pitocin 1-2 mU every 30 min to max dose of 30 mu/min Maintain at 30 mU for one hour. Without cervical change, see plan abpve Cat I tracing
--- NOTE | 2020-09-06 18:12 | PROVIDER PROGRESS NOTE ---
Subjective - Prog Note Date Prog Note Date: 09/06/20 Prog Note Time: 18:07 - Subjective Subjective: Patient is now very uncomfortable and has contacted road consultant to be at bedside. Pitocin was at 25 mU/min for about 20 minutes but contractions were sufficient at 24 mu/min SVE was 6/90/-2 station, confirmed by 2 RNs Cat I tracing Patient now requesting nitrous oxide. Will check at 2 hour ivan. Maintaining at 24 units ETA: Feeling pushy. Anterior lip, complete, +1 station Getting ready for delivery Objective - Vital Signs/Intake & Output Vital Signs: Vital Signs x48h Temp 09/06/20 14:08 98.1 F Intake & Output: Intake & Output 09/03/20 09/04/20 09/05/20 09/06/20 23:59 23:59 23:59 23:59 Intake Total 480 4730.857 2951.817 1500.000 Output Total 225 890 Balance 480 0430.639 0832.817 610.000 - Lab Results Fish Bones: 09/03/20 08:15 09/03/20 08:15 Other Labs: Lab Results x24hrs 09/03/20 Range/Units 09:45 Coronavirus (PCR) NEGATIVE
[2020-09-06] MEDS: OXYTOCIN/SODIUM CHLORIDE 500 ML IV PRN ×3 (19:12→22:28)
[2020-09-06] MEDS ORDERED: ONDANSETRON ODT 4 MG TABLET TL PRN (20:07)
[2020-09-06] MEDS ORDERED: SIMETHICONE CHEW 80 MG TABLET PO PRN (20:07)
--- NOTE | 2020-09-06 20:16 | DELIVERY NOTE ---
Delivery Note - Labor Labor: positive: Induced by oxytocin - Infant Delivery Method Delivery Method: positive: Spontaneous vaginal delivery - Cervical Ripening Method Cervical Ripening Method: positive: Balloon device, Misoprostil - Nuchal Cord Nuchal Cord: positive: None - Anesthetic Anesthetic Type: - Amniotic Fluid Description Amniotic Fluid Description: positive: Clear - Laceration Laceration: positive: 2nd degree - Suture Suture Type: positive: Vicryl Suture Size: positive: 3-0 - Delivery Outcome Delivery Outcome: positive: Livebirth - [place] : positive: Placed in direct skin contact with mother, Stimulated, Warmed, [place] used sex: positive: Female - Cord Cord: positive: 3 vessels - Placenta Placenta: positive: Intact, Expressed - Estimated Blood Loss Estimated Blood Loss (in cc): 150 - Post Delivery Events Post Delivery Events: positive: No post delivery events - Delivery Comments (Free Text/Narrative) Delivery Comments (Free Text/Narrative): Patient is a 35 yo admitted at 37+5 wga on 09/03/2020 for induction of labor for complicated by gestational hypertension. She was admitted and initial SVE was closed/long/high. She received misoprostol 50 mcg BC x6 followed with Diaz balloon placement. She was started on pitocn and reached a max dose of 20 mU/min. She was then rested for 5 hours and started on pitocin again. She reached the max dose and the decision was amde to proceed carefully to max dose of 30 mU/min. However, patient reached 24 mU/min and was praul regularly and making cervical change. She was noted to be completely dilated at 18:30. Underwent spontaneous rupture of membranes at 18:40, notable for passage of clear fluid. No epidural; patient had an unmedicated labor course. GBS negative and antibiotics were not indicated. Cat I tracing throughout Stage I. STAGE II: Patient pushed well for 37 minutes to deliver a viable female infant from vertex presentation at 19:07. Infant was delivered into mother's arms. After pulsations had ceased, cord was clamped x2 and cut. No nuchal cord. Weight and Apgars pending. STAGE III: Placenta delivered at 19:15 with manual expression. It was examined and found to be intact Examination of perineum revealed at 2nd degree laceration. Rectal exam was performed and confirmed intact anal sphincter. A total of 16 cc of 1% lidocaine was used for local anesthetic. Laceration was remained in the usual sterile fashion in layers using 3-0 Vicryl. Misoprostol 600 mcg BC was administered as a preventive measure given the prolonged induction. Total EBL 150 cc. Procedure was well tolerated and without complication.
[2020-09-06] MEDS: ACETAMINOPHEN 500 MG TABLET PO PRN (20:49)
[2020-09-06] MEDS ORDERED: LACTATED RINGERS 1,000 ML IV SCH (21:00)
[2020-09-07] MEDS: OXYTOCIN/SODIUM CHLORIDE 500 ML IV PRN (00:05)
[2020-09-07] MEDS: ACETAMINOPHEN 500 MG TABLET PO PRN ×3 (04:44→20:34)
[2020-09-07] MEDS: miSOPROStoL 100 MCG TABLET BC SCH ×2 (07:32→07:34)
[2020-09-07] MEDS: SODIUM CHLORIDE FLUSH 0.9% 10 ML SYRINGE IVP SCH ×2 (07:32→07:34)
--- NOTE | 2020-09-07 17:37 | PROVIDER PROGRESS NOTE ---
Subjective - Prog Note Date Prog Note Date: 09/07/20 Prog Note Time: 13:12 - Subjective Subjective: Doing well. BF is going well. Patient is up and ambulating, tolerating po, and voiding. Pain is well managed with pain medications. Minimal bleeding. No co mplaints Objective - Vital Signs/Intake & Output Reviewed Vital Signs: Yes Vital Signs: Vital Signs x48h Temp Pulse Resp BP Pulse Ox 09/07/20 16:50 97.9 F 83 16 121/82 H 99 09/07/20 12:40 98.1 F 90 16 126/80 99 Intake & Output: Intake & Output 09/04/20 09/05/20 09/06/20 09/07/20 23:59 23:59 23:59 23:59 Intake Total 7352.928 7664.817 3720.000 2498.333 Output Total 225 1165 1620 Balance 8490.695 1737.817 2555.000 878.333 - Objective General Appearance: positive: No acute distress Respiratory: positive: Chest non-tender, No respiratory distress, Breath sounds nml Cardiovascular: positive: Regular rate & rhythm Abdomen: positive: Non-tender, Other (FF below umbi) Back: positive: Nml inspection Skin: positive: Color nml Extremities: positive: Pedal edema, Other (WWP. NT. BLE edema.) Neurologic/Psychiatric: positive: Oriented x3 - Lab Results Fish Bones: 09/03/20 08:15 09/03/20 08:15 Other Labs: Lab Results x24hrs 09/06/20 Range/Units 00:50 Blood Type A POSITIVE Antibody Screen NEGATIVE Crossmatch IS Only See Detail Assessment/Plan - Problem List (2) Vaginal delivery Impression: PPD#1 s/p with GHTN BPs wnl Doing well from PP standpoint Anticipate DC home in am
[2020-09-07] MEDS: DOCUSATE SODIUM 100 MG CAPSULE PO PRN (20:35)
[2020-09-08] MEDS: ACETAMINOPHEN 500 MG TABLET PO PRN ×2 (05:31→13:18)
--- NOTE | 2020-09-08 08:30 | PROVIDER PROGRESS NOTE ---
Subjective - Prog Note Date Prog Note Date: 09/08/20 Prog Note Time: 08:26 - Subjective Subjective: Patient is up and ambulating, tolerating po, and voiding. Pain is well managed with pain medications. BF is going well. BPs wnl Objective - Vital Signs/Intake & Output Reviewed Vital Signs: Yes Vital Signs: Vital Signs x48h Temp Pulse Resp BP Pulse Ox 09/08/20 05:15 97.9 F 75 14 118/65 99 Intake & Output: Intake & Output 09/05/20 09/06/20 09/07/20 09/08/20 23:59 23:59 23:59 23:59 Intake Total 2839.817 3720.000 2498.333 Output Total 225 1165 1620 Balance 2614.817 2555.000 878.333 - Objective General Appearance: positive: No acute distress Respiratory: positive: No respiratory distress Cardiovascular: positive: Regular rate & rhythm Peripheral Pulses: 2+ Radial (R), 2+ Radial (L) Abdomen: positive: Non-tender, Other (FF BELOW UMBI) Skin: positive: Color nml Extremities: positive: Pedal edema, Other (BLE edema, 2+. NT. Improved from yesterday. No cords or warmth) Neurologic/Psychiatric: positive: Oriented x3 - Lab Results Fish Bones: 09/03/20 08:15 09/03/20 08:15 Assessment/Plan - Problem List (2) Vaginal delivery Impression: PPD#2: Meeting goals for discharge Warning signs reviewed Routine DC instructions given Will check dialy BP and RTC in one week for assessment
--- NOTE | 2020-09-08 08:32 | Discharge Plan ---
Discharge Plan Problem Reviewed?: Yes Disposition: Home, Self Care Diet: Regular Activity Restrictions: Additional Comments (Nothing in the vagina for 6 weeks: No intercourse, tampons, douching Call for: -Fever greater than 100.5 - Pain that does not improve with pain medication -Heavy bleeding in which you are soaking a pad an hour for 2 hours in a row) Shower Restrictions: No (No tub baths or hot tubs for 4 weeks other than shallow sitz bath) Driving Restrictions: No Health Concerns: Ibuprofen 600 mg by mouth every 6 hours as needed for pain Acetaminophen 500-1000 mg by mouth every 8 hours as needed for pain Docusate 100-200 mg by mouth twice a day as needed for constipation Additional Instructions or Follow Up instructions: Call for: Systolic blood pressures (upper number) over 160 or diastolic blood pressure (lower number) more than 110 Severe headache that does not improve with pain medication Sparkly lights or black spots in your firld of vision Pain in the right upper corner of your abdomen No Smoking: If you smoke, Please STOP! Call for help. Follow-up with: Jerrica Hoffman MD [Provider Admit Priv/Credential] -
[2020-09-08 08:33] VITALS: BP 126/86
--- NOTE | 2020-09-08 08:39 | DISCHARGE SUMMARY ---
Discharge Summary Admit Date: 09/03/20 Discharge Date: 09/08/20 Discharging Provider: Dalton Discharge Disposition: 01 Home, Self Care - DIAGNOSES Admission Diagnoses: IUP at 37+5 wga Gestational hypertension Discharge Diagnoses with Status of Each Condition: Same and delivery of term gestation - HPI History of Present Illness: Patient is a 35 yo admitted at 37+5 wga for induction of labor. Patient had been followed by [facility] and planned a home . She started to develop consistently elevated blood pressures and her table hand recommended transfer with likely induction of labor for GHTN. Patient presented to clinic on 08/31/2020 and elevated BP was noted. She presented her BP log which also showed an upward trend on BPs with increasing consistency. She was sent to triage for NST, PIH assessment, and growth us, all of which returned wnl. EFW 8%ile with normal HUBER and vertex presentation. We had reviewed R/B/A to induction at that time and written informed consent was obtained. We also reviewed her plan which she has brought with her. Initial US: at 13.4wks c/wLMP for ILEANA of 09/19/2020 A pos/Rubella imm Genetic testing: education given, declines FAS: Anterior Placenta. HUBER wnl. EFW 11% with symmetrical growth. 3VC. Glucola 91 TDAP 07/31/2020 GBS neg HSV: denies self and partner Breast pump Rx MOD: . Spouse: Juan Alberto. Gender: SURPRISE. (ILEANA by late US, long cycle length, she believes ILEANA ) Read Veronica Lynn's Guide. pp contraception: PA: Pt reports 2019- wnl - HOSPITAL COURSE Hospital Course: Patient is a 35 yo admitted at 37+5 wga on 09/03/2020 for induction of labor for complicated by gestational hypertension. She was admitted and initial SVE was closed/long/high. She received misoprostol 50 mcg BC x6 followed with Diaz balloon placement. She was started on pitocn and reached a max dose of 20 mU/min. She was then rested for 5 hours and started on pitocin again. She reached the max dose and the decision was amde to proceed carefully to max dose of 30 mU/min. However, patient reached 24 mU/min and was parul regularly and making cervical change. She was noted to be completely dilated at 18:30. Underwent spontaneous rupture of membranes at 18:40, notable for passage of clear fluid. No epidural; patient had an unmedicated labor course. GBS negative and antibiotics were not indicated. Cat I tracing throughout Stage I. STAGE II: Patient pushed well for 37 minutes to deliver a viable female infant from vertex presentation at 19:07. was delivered into mother's arms. After pulsations had ceased, cord was clamped x2 and cut. No nuchal cord. Weight 3770g and Apgars 9/9. STAGE III: Placenta delivered at 19:15 with manual expression. It was examined and found to be intact Examination of perineum revealed at 2nd degree laceration. Rectal exam was performed and confirmed intact anal sphincter. A total of 16 cc of 1% lidocaine was used for local anesthetic. Laceration was remained in the usual sterile fashion in layers using 3-0 Vicryl. Misoprostol 600 mcg BC was administered as a preventive measure given the prolonged induction. Total EBL 150 cc. Procedure was well tolerated and without complication. Post course was uncomplicated. Blood pressures remained in normal range without medications. Patient discharged to home on 09/08/2020 (pending final clearance of for delivery) - ALLERGIES Allergies/Adverse Reactions: Allergies Allergy/AdvReac Type Severity Reaction Status Date / Time No Known Drug Allergies Allergy Verified 09/03/20 10:20 - LABS Result Diagrams: 09/03/20 08:15 09/03/20 08:15 - FOLLOW UP Follow Up: [address] Hoffman - TIME SPENT Time Spent in Discharge (Minutes): 30
[2020-09-08] MEDS: DOCUSATE SODIUM 100 MG CAPSULE PO PRN (13:18)
== END 2020-09-08 13:30 | disposition home or self-care (01) | DRG 807 ==
LOC: WFO 07:34 → FBP 07:39 → WFO 07:51 → FBP 07:52
PROVIDERS: ADMIT Obstetrics & Gynecology; ATTEND Obstetrics & Gynecology
PROC: 3E033VJ Introduction of Other Hormone into Peripheral Vein, Percutaneous Approach (ICD-10-PCS; principal; 2020-09-03)
PROC: 0U7C7ZZ Dilation of Cervix, Via Natural or Artificial Opening (ICD-10-PCS; 2020-09-04)
PROC: 10E0XZZ Delivery of Products of Conception, External Approach (ICD-10-PCS; 2020-09-06)
PROC: 0KQM0ZZ Repair Perineum Muscle, Open Approach (ICD-10-PCS; 2020-09-06)
DX: O13.4 Gestational [pregnancy-induced] hypertension without significant proteinuria, complicating childbirth (principal); Z37.0 Single live birth; Z3A.37 37 weeks gestation of pregnancy; O70.1 Second degree perineal laceration during delivery
CPT/HCPCS: 36415; 80053; 82570; 84156; 85025; 86850; 86900; 86901; 86920; 87635; A9270; J7120

== ENCOUNTER 2022-11-16 14:34 | Outpatient (CLI) | payer OTHER | END 2022-11-16 14:35 | disposition home or self-care (01) | LOC: DI 14:34 | PROVIDERS: ATTEND Registered Nurse | DX: Z53.9 Procedure and treatment not carried out, unspecified reason (principal) ==

== ENCOUNTER 2022-11-16 14:34 | Outpatient (CLI) | payer OTHER ==
--- NOTE | 2022-11-16 16:24 | Ultrasound Report ---
PROCEDURE: Pelvic w/Transvaginal INDICATIONS: BRCA1 GENE MUTATION POSITIVE TECHNIQUE: Real-time scanning was performed of the pelvic organs, with image documentation. Additional endovagi nal scanning was necessary due to incomplete visualization of the adnexal and endometrial structures by transabdominal scanning. COMPARISON: None. FINDINGS: Uterus: Uterus is anteverted and normal in size at 9.4 x 5.1 x 6.0 cm. The myometrium is homogeneou s. The endometrium measures 20 mm in combined thickness. Small nabothian cysts are present. Ovaries: The right ovary measures 2.7 x 2.4 x 4.2 cm, with a calculated ovarian volume of 14.2 cc. The left ovary measures 3.8 x 2.5 x 2.5 cm, with a calculated ovarian volume of 12.4 cc. The ovaries have a normal sonographic appearance. Less than 12 follicles can be seen in each ovary. No adnexal masses are seen. Other: A physiologic amount of free fluid is seen in the pelvic cul-de-sac. IMPRESSION: 1.Mild thickening of the endometrium to 20 mm, which is nonspecific and endometrial hyperplasia or an endometrial polyp are not excluded. 2.No adnexal mass. Reviewed by: Wes Duff MD on 11/16/2022 4:23 PM PST Approved by: Wes Duff MD on 11/16/2022 4:23 PM PST Station ID: [id number]
== END 2022-11-16 14:35 | disposition home or self-care (01) ==
LOC: DI 14:34
PROVIDERS: ATTEND Registered Nurse
DX: Z15.01 Genetic susceptibility to malignant neoplasm of breast (principal)